=== PATIENT | male | born 1940 | race Caucasian/White ===

== ENCOUNTER 2020-04-21 03:02 | Outpatient (CLI) | payer MEDICARE, OTHER, SELFPAY ==
[2020-04-22 19:28] LABS: SARS-CoV-2 RNA PCR Negative
== END 2020-04-21 03:03 | disposition home or self-care (01) ==
LOC: ANHCOVIDDT 03:04
PROVIDERS: PCP Nurse Practitioner Adult Health; Visit Provider Internal Medicine Gastroenterology
DX: Z01.812 Encounter for preprocedural laboratory examination (principal); Z11.59 Encounter for screening for other viral diseases
CPT/HCPCS: 87635; C9803; U0003

== ENCOUNTER 2020-04-23 01:54 | Day surgery (SDC) | payer MEDICARE, OTHER, SELFPAY ==
[2020-04-14 13:02] VITALS: BMI 24.7
[2020-04-23 11:11] VITALS: BMI 24.7
[2020-04-23 11:15] VITALS: BP 146/79; PULSE 53; RESP 21; TEMP 36.9; O2SAT 98
[2020-04-23] MEDS: LACTATED RINGERS 1,000 ML 150 ML IV CONT (11:22)
[2020-04-23] MEDS: GENTAMICIN 80MG/SOD CHL 50 ML 80 MG/50 ML BAG 100 MG IVPB (11:23)
[2020-04-23] MEDS: AMPICILLIN 2 GM/NS 100 ML 2 GM/100 ML BAG IVPB (11:53)
--- NOTE | 2020-04-23 12:40 | WPDANESEPPF ---
Anes - Initial Pre Proc Eval Procedure: Operation Date: 04/23/20 12:30 Proposed Procedures p Esophagogastroduodenoscopy - Rajeev Jacobson DO Date/Time: 04/23/20 12:40 Surgeon: Rajeev Jacobson DO Pre Op Diagnosis: GERD Patient Data Age: 80 Gender: M Height: 5 ft 7 in Weight: 71.7 kg Allergies Allergy/AdvReac Type Severity Reaction Status Date / Time MSG AdvReac Unknown MIGRAINES Uncoded 04/23/20 11:02 Home Medications Medication Instructions Recorded Confirmed Type famotidine 20 mg PO BID 04/14/20 04/14/20 History omeprazole 20 mg PO DAILY 04/14/20 04/14/20 History simvastatin 20 mg PO DAILY 04/14/20 04/14/20 History All Day Allergy (cetirizine) 04/23/20 History aspirin [Adult Aspirin Regimen] 81 mg PO DAILY 04/23/20 04/23/20 History calcium polycarbophil [FiberCon] 625 mg DAILY 04/23/20 04/23/20 History glucos sul [id number]-Mn 04/23/20 History [Glucosamine Chondroitin] vitamin B comp and C no.3 [B 1 cap PO DAILY 04/23/20 04/23/20 History Complex Plus Vitamin C] Patient hx anesthesia problems: none Family hx anesthesia problems: none PMFSH Past Medical History Medical History (Updated 04/23/20 @ 12:36 by Kennedy Waters MD) GERD (gastroesophageal reflux disease) Hyperlipidemia Migraine Anes - Eval Final PreProcedure Day of Procedure 04/23/20 12:40 Patient weight: normal Heart: regular rate and rhythm Lungs: clear to auscultation Airway: Mallampati scale class II Neurological: alert and oriented Last oral intake: >/= 8 hours ASA classification: III Emergent: no Anesthetic plan: proceed Anesthesia type and monitoring: general GIVS and standard monitoring Informed Consent: The patient's anesthetic plan and its attendant risks and benefits were discussed with the patient/family/POA. Questions were solicited and answers provided to the satisfaction of the patient/family/POA.
--- NOTE | 2020-04-23 13:24 | PM.IMHP ---
H&P: HPI History of Present Illness Chief complaint: GERD Narrative: Reason for visit EGD. This very pleasant gentleman seen at the request of the primary physician. The patient was examined. Impression: The we have a very pleasant gentleman with underlying reflux disease. He is having atypical chest pain. He has responded to increased reflux treatment. He is here for endoscopic evaluation to assess for lying breakthrough symptoms. HTN. HLD. 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 Recommendation: EGD. History: This very pleasant gentleman is being evaluated for atypical chest pressure. The patient underwent cardiac stress testing and was determined to have a negative workup. Patient does have a history of reflux disease. He was seen in the office by my physicians assistant county attorney. The medication was increased and his symptoms have abated. He denies any nausea, vomiting or hematemesis. Denies any constipation, diarrhea, hematochezia, melena or acholic stools. Abdominal pain is denied. Patient is here for EGD. The patient's symptoms with compatible with an atypical chest pressure. Physical examination: General: very pleasant patient in no acute distress. HEENT: Head was normocephalic sclerae is clear mouth without masses neck was supple. Heart: Rate rhythm regular without S3 or S4. Lungs: CTA. Abdomen: Soft with no guarding or rigidity. Bowel sounds were active. Neurologic: Cranial nerves 2 through 12 intact. No focal defects. No clonus. Musculoskeletal system: Revealed no joint tenderness or swelling no muscle atrophy. Extremities: Reveal no significant edema. Skin: Warm and dry with normal turgor. Mental status: intact. Patient is alert and oriented. Review of Systems Review of Systems: All systems reviewed & are unremarkable except as noted in HPI and below [facility] Past Medical History Medical History (Updated 04/23/20 @ 13:23 by Rajeev Jacobson DO) GERD (gastroesophageal reflux disease) HTN (hypertension) Hyperlipidemia Migraine Valvular heart disease s/p TVR Surgical History Surgical History (Updated 04/23/20 @ 13:23 by Rajeev Jacobson DO) H/O colonoscopy Tricuspid valve replaced Meds Home Medications and Allergies Home Medications Medication Instructions Recorded Confirmed Type famotidine 20 mg PO BID 04/14/20 04/14/20 History omeprazole 20 mg PO DAILY 04/14/20 04/14/20 History simvastatin 20 mg PO DAILY 04/14/20 04/14/20 History All Day Allergy (cetirizine) 04/23/20 History aspirin [Adult Aspirin Regimen] 81 mg PO DAILY 04/23/20 04/23/20 History calcium polycarbophil [FiberCon] 625 mg DAILY 04/23/20 04/23/20 History glucos sul [id number]-C-Mn 04/23/20 History [Glucosamine Chondroitin] vitamin B comp and C no.3 [B 1 cap PO DAILY 04/23/20 04/23/20 History Complex Plus Vitamin C] Allergies Allergy/AdvReac Type Severity Reaction Status Date / Time MSG AdvReac Unknown MIGRAINES Uncoded 04/23/20 11:02
[2020-04-23 13:39] VITALS: BP 121/71; PULSE 46; RESP 16; O2SAT 96
[2020-04-23 13:49] VITALS: BP 116/71; PULSE 48; RESP 18; O2SAT 96
[2020-04-23 13:59] VITALS: BP 127/73; PULSE 46; RESP 20; O2SAT 99
== END 2020-04-23 13:41 | disposition home or self-care (01) ==
PROVIDERS: PCP Nurse Practitioner Adult Health; Visit Provider Internal Medicine Gastroenterology
PROC: 0DJ08ZZ Inspection of Upper Intestinal Tract, Via Natural or Artificial Opening Endoscopic (ICD-10-PCS; CPT 43235; principal; 2020-04-23 12:30)
DX: K21.9 Gastro-esophageal reflux disease without esophagitis (principal); R07.89 Other chest pain; E78.5 Hyperlipidemia, unspecified; I10 Essential (primary) hypertension; Z79.82 Long term (current) use of aspirin; Z95.4 Presence of other heart-valve replacement
CPT/HCPCS: 43239; 87081; J0290; J1580; J2704; J7120

== ENCOUNTER 2021-02-25 12:57 | Outpatient (CLI) | payer MEDICARE, SELFPAY ==
--- NOTE | ~2021-02-25 | US_ITS ---
EXAMINATION: US venous doppler LE RT DATE: 02/25/2021 13:33 INDICATION: Right calf pain and erythema. TECHNIQUE: Grayscale ultrasound images without and with compression and Doppler ultrasound images of the right lower extremity veins were obtained. COMPARISON: None. FINDINGS: The visualized portions of right common femoral vein, profunda (deep) femoral vein, femoral vein, pop liteal vein, peroneal trunk, posterior tibial veins, peroneal veins, gastrocnemius vein and greater s aphenous vein outflow are patent. IMPRESSION: 1. No deep venous thrombosis in the right lower limb. Reviewed, dictated and finalized at location A.
== END 2021-02-25 12:58 | disposition home or self-care (01) ==
LOC: ANHIMG 12:59
PROVIDERS: PCP Nurse Practitioner Adult Health; Visit Provider Nurse Practitioner Adult Health
DX: M79.661 Pain in right lower leg (principal)
CPT/HCPCS: 93971

== ENCOUNTER 2025-05-13 08:17 | Emergency (ER) | payer MEDICARE, SELFPAY ==
--- NOTE | ~2025-05-13 | XR_ITS ---
EXAMINATION: XR chest 2V DATE: 05/13/2025 08:54 INDICATION: 3 weeks of cough with crackles in the right lower lung. TECHNIQUE: PA and lateral views of the chest were obtained. COMPARISON: Chest CT dated 09/27/2018 FINDINGS: Peripheral predominant patchy airspace opacities in both lungs. No pleural effusion or pneumothorax. Borderline heart size. Median sternotomy wires and changes of prior tricuspid valve repair. IMPRESSION: 1. Peripheral predominant patchy airspace opacities bilateral lungs with differential including. Atel ectasis, pneumonia, chronic eosinophilic pneumonia or organizing pneumonia. Reviewed, dictated and finalized at location A. IMPRESSION: 1. Peripheral predominant patchy airspace opacities bilateral lungs with differ ential including. Atelectasis, pneumonia, chronic eosinophilic pneumonia or org anizing pneumonia.
--- OUTSIDE RECORDS SUMMARY | 2025-05-13 08:25 | XMS_ITS | Clinical Summary ---
Author Organization [facility]. Address [address] [place] [address] Care Team Providers Care Structurer Name Role Phone Josue Gates Shawn B M.D. Primary Care Provider [phone] Allergies No known active allergies Medications omeprazole (PRILOSEC) 20 MG delayed release capsule Take 20 mg by mouth every morning (before breakfast). Active simvastatin (ZOCOR) 20 MG tablet Take 20 mg by mouth nightly. Active sUMAtriptan (IMITREX) 100 MG tablet Take 100 mg by mouth as needed for Migraine. Active Probiotic Product (PROBIOTIC DAILY PO) Take by mouth daily. Active aspirin EC 81 MG enteric coated tablet Take 81 mg by mouth three times a week. Active cetirizine (ZYRTEC) 10 MG tablet Take 10 mg by mouth daily. Active Zinc 50 MG Tab Take by mouth daily. Active Ascorbic Acid (VITAMIN C PO) Take by mouth daily. Active B Complex Vitamins (B COMPLEX PO) Take by mouth daily. Active HYDROcodone-tameka taminophen (NORCO, LORTAB, VICODIN) 5-325 MG tablet Take 1 or 2 tablets by mouth every 6 hours as needed. 20 tablet 11/09/2022 10:29 AM EST 11/09/2022 Active Active Problems Problem Noted Date Diagnosed Date Malignant melanoma of skin of forearm, right ([facility] 11/09/2022 Social History Tobacco Use Types Packs/Day Years Used Date Smoking Tobacco: Never Smokeless Tobacco: Never Tobacco Cessation:Counseling Given: Not Answered Alcohol Use Standard Drinks/Week Comments Yes 0 (1 standard drink = 0.6 oz pur e alcohol) 3-4 per daily Sex and Gender Information Value Date Recorded Sex Assigned at Not on file Legal Sex Male 9:41 AM EST Gender Identity Not on file Sexual Orientation Not on file Last Filed Vital Signs Vital Sign Reading Time Taken Comments Blood Pressure 135/78 11/09/2022 9:40 AM EST Pulse 57 11/09/2022 9:40 AM EST Temperature 36.2 C (97.2 F) 11/09/2022 9:05 AM EST Respiratory Rate 14 11/09/2022 9:40 AM EST Oxygen Saturation 97% 11/09/2022 9:40 AM EST Inhaled Oxygen Concentration - - Weight 72.2 kg (159 lb 2.8 oz) 11/09/2022 6:13 A M EST Height 170.2 cm (5' 7) 10/28/2022 9:54 AM EST Body Mass Index 24.93 10/28/2022 9:54 AM EST Plan of Treatment Health Maintenance Due Date Last Done Comments MEDICARE WELLNESS EXAM 1958 TETANUS/DIPHTHERIA 09/26/2015 09/26/2005 RSV Immunization - age 60 years and older or (1 - 1-dose 75+ series) 02/21/2016 COVID-19 Vaccine ( season) 2024 09/10/2021, 01/09/2021, 12/12/2020 INFLUENZA (#1) 2025 07/16/2022, 06/27, 07/18/2020, Additional history exists PNEUMOCOCCAL (50y+) Completed 08/06/2016, 6 ZOSTER (SHINGLES) Completed 07/08/2021, , 12/23/2008 HEP B Aged Out No longer eligi ble based on patient's age to complete this topic MEN B Vaccine Aged Out No longer elig ible based on patient's age to complete this topic RSV Immunization < 20 months Aged Out No longer eligible based on patient's age to complete this topic Insurance [employer]ICARE Care Teams Structurer Relationship Specialty Start Date End Date Josue Gates [address] [place] [phone] PCP - Cardiology Internal Medicine Cardiovascular Disease 10/28/22 Chino Alexander M.D. [address] [place] [phone] PCP - General Internal Medicine 10/28/22
--- OUTSIDE RECORDS SUMMARY | 2025-05-13 08:25 | XMS_ITS | Clinical Summary ---
Author Organization [facility] Address [address] [facility] [address] [place] [address] Phone Care Team Providers Care Front Desk Name Role Phone Ashley Banuelos JOSE D Primary Care Provider [phone] Allergies No known active allergies Medications simvastatin (ZOCOR) 20 MG Tablet simvastatin 20 mg tablet 0 Active famotidine (PEPCID) 20 MG Tablet famotidine 20 mg tablet Active B Complex Vitamins (B COMPLEX 1 PO) B Complex 1 PO BID Active Ascorbic Acid (VITAMIN C) 100 MG Tablet Vitamin C 1,000 mg tablet Take 1 tablet every day by oral route. Active zinc sulfate (ZINCATE) 220 (50 Zn) MG Capsule zinc sulfate 220 mg (50 mg) capsule Take 1 capsule every day by oral route. 6 Active polyethylene glycol (GLYCOLAX, MIRALAX) 17 g Pack polyethylene glycol 3350 17 gram/dose oral powder Active Misc Natural Products (GLUCOSAMINE CHOND COMPLEX/MSM PO) Glucos Chond Cplx Advanced 1 PO QD Active aspirin EC 81 MG Tablet Delayed Response Take 81 mg by mouth daily. Active Multiple Vitamins-Minera ls (MENS MULTI VITAMIN & MINERAL PO) Take by mouth. Act luc polycarbophil calcium (FIBERCON) 625 MG Tablet 625 mg. 6 Active Active Problems Problem Noted Date Diagnosed Date Ascending aorta dilatation 06/03/2016 Overview (04/09/2020): Ascending aorta dilatation Benign hypertension 06/03/2016 Overview (04/09/2020): HTN (hypertension), benign Coronary artery disease invo lving [place] coronary artery of [place] heart without angina pectoris 06/03/2016 Overview (04/09/2020): Coronary artery disease involving [place] coronary artery of [place] heart without angina pectoris Disorder of right ventricle of heart 06/03/2016 Overview (04/09/2020): Right ventricular enlargement Dyslipidemia 06/03/2016 Overview (04/09/2020): Dyslipidemia Gastroesophageal reflux disease without esophagi tis 06/03/2016 Overview (04/09/2020): GERD without esophagitis History of tricuspid valve replacement 6 Overview (04/09/2020): History of tricuspid valve replacement with bioprosthetic valve Patent foramen ovale 06/03/2016 Overview (04/09/2020): PFO (patent foramen ovale) Family History Medical History Relation Name Comments Cancer Mother Gull Bladder Relation Name Status Comments Mother Social History Tobacco Use Types Packs/Day Years Used Date Smoking Tobacco: Never Smokeless Tobacco: Never Tobacco Cessation:Counseling Given: No Alcohol Use Standard Drinks/Week Comments Yes 0 (1 standard drink = 0.6 oz pur e alcohol) 4 beers a day Sex and Gender Information Value Date Recorded Sex Assigned at Not on file Legal Sex Male 10:13 PM CDT Gender Identity Not on file Sexual Orientation Not on file Last Filed Vital Signs Vital Sign Reading Time Taken Comments Blood Pressure 134/92 04/09/2020 9:14 AM CDT Pulse 62 04/09/2020 9:14 AM CDT Temperature 36.2 C (97.1 F) 04/09/2020 9:14 AM CDT Respiratory Rate 16 04/09/2020 9:14 AM CDT Oxygen Saturation 99% 04/09/2020 9:14 AM CDT Inhaled Oxygen Concentration - - Weight 72.6 kg (160 lb) 04/09/2020 9:14 AM CDT Height 170.2 cm (5' 7) 04/09/2020 9:14 AM CDT Body Mass Index 25.06 04/09/2020 9:14 AM CDT Plan of Treatment Health Maintenance Due Date Last Done Comments Hepatitis C Virus (HCV) Screening 1940 TdaP Immunization 1940 Pneumococcal Immunization (5 0+ years) (2 of 2 - PCV) 07/15/2007 07/15/2006 Zoster Immunization (2 of 3) 11/21/2011 09/26/2011 Respiratory Syncytial Virus (RSV) Immunization (Adult) (1 - 1-dose 75+ series) 02/21/2016 SARS-COV-2 Immunization (1 - 2023- season) 2024 Influenza Immunization (#1) 2025 06/26/2015 DTaP/Tdap/Td Immunization Discontinued 2005, 09/26/1995 Pneumococcal Immunization Combined Discontinued 07/15/2006 Hepatitis B Immunization Aged Out No longer eligible based on patient's age to complete this topic Human Papillomavirus (HPV) Immunization Aged Out No longer eligible based on patient's age to complete this topic Meningococcal Immunization (ACWY) Aged Out No longer eligible based on patient's age to complete this topic Rotavirus Immunization Aged Out No lo nger eligible based on patient's age to complete this topic Insurance MEDICARE [facility] Care Teams Front Desk Relationship Specialty Start Date End Date Ashley Banuelos APRN PCP - General Advanced Practice Nurse 04/09/20
[2025-05-13 08:26] VITALS: BP 160/68; PULSE 62; RESP 18; TEMP 36.2; O2SAT 99
--- OUTSIDE RECORDS SUMMARY | 2025-05-13 08:26 | XMS_ITS | Clinical Summary ---
Author Organization [facility] [address] Address [address] [place] [address] Care Team Providers Care Grease Maker Head Name Role Phone Ashley Banuelos NP Primary Care Provider [phone] Allergies No known active allergies Medications SUMAtriptan (IMITREX) 100 mg tablet take 1 tablet by oral route once with fluids as early as possible after the onset of a migraine attack;may repeat after 2 hours if headache returns, not to exceed 200mgin 24hrs 0 0 6 Active multivitamin tablet tablet take 1 tablet by oral route every day with food 0 0 6 Active zinc sulfate (ZINCATE) 220 (50) mg capsule take one capsule by mouth once daily 0 0 6 Active ascorbic acid, vitamin C, (VITAMIN C) 1,000 mg CR tablet take one tablet by mouth once daily 0 0 6 Active polycarbophil (FIBERCON) 625 mg tablet take 1 by Oral route once 0 0 6 Active b complex vitamins tablet take 2 by Oral route every day 0 0 6 Active glucosam-chond ro-herb 149-hyal (GLUCOS CHOND CPLX ADVANCED ORAL) Glucos Chond Cplx Advanced QD 3 Active aspirin 81 mg enteric coated tablet Take 81 mg by mouth every other day Active triamcinolone (KENALOG) 0.5 % ointment triamcinolone acetonide 0.5 % topical ointment Active valACYclovir (VALTREX) 500 mg tablet valacyclovir 500 mg tablet Active simvastatin (ZOCOR) 20 mg tablet Take 1 tablet (20 mg total) by mouth nightly 90 tablet 3 0 Active omeprazole (PriLOSEC) 20 mg capsule daily Active Eliquis 5 mg tablet TAKE 1 TABLET BY MOUTH IN THE MORNING AND IN THE EVENING Active cholecalcifero l (VITAMIN D-3) 1,000 unit 4 Active ferrous sulfate 325 mg (65 mg of elemental iron) tablet Take 1 tablet (325 mg total) by mouth daily 4 Active Active Problems Problem Noted Date Diagnosed Date Mixed hyperlipidemia 03/08/2022 Bradycardia 03/17/2021 Sick sinus syndrome 03/17/2021 Pain of foot 10/04/2016 Ankle pain 10/04/2016 Disorder of right ventricle of heart 06/03/2016 Overview (12/31/2016): Right ventricular enlargement Ascending aorta dilatation 06/03/2016 Overview (12/31/2016): Ascending aorta dilatation Patent foramen ovale 06/03/2016 Overview (12/31/2016): PFO (patent foramen ovale) Coronary artery disease invo lving [place] coronary artery of [place] heart without angina pectoris 06/03/2016 Overview (12/31/2016): Coronary artery disease involving [place] coronary artery of [place] heart without angina pectoris Benign hypertension 06/03/2016 Overview (12/31/2016): HTN (hypertension), benign History of tricuspid valve replacement 6 Overview (12/31/2016): History of tricuspid valve replacement with bioprosthetic valve Gastroesophageal reflux disease without esophagi tis 06/03/2016 Overview (12/31/2016): GERD without esophagitis Resolved Problems Problem Noted Date Diagnosed Date Resolved Date Dyslipidemia 06/03/2016 03/08/2022 Overview (12/31/2016): Dyslipidemia Encounters Date Type Department Care Team Description 03/05/2025 1:00 PM CDT Office Visit [facility] [address] [place] [address] Lucas Mart MD History of tricuspid valve replacement (Primary Dx); Sick sinus syndrome (HCC) from Last 3 Months Medical History Medical History Date Comments Hypertension Coronary artery disease H/O tricuspid valve replacement PFO (patent foramen ovale) s/p o versewing Ascending aorta dilatation Family History Medical History Relation Name Comments Other Brother quad bypass; Other Father complications f rom broken hip; Cause of : complications from broken hip Liver cancer Mother Cancer, liver; Cause of : Cancer, liver Relation Name Status Comments Brother Father (Age 78) Mother (Age 71) Social History Tobacco Use Types Packs/Day Years Used Date Smoking Tobacco: Never Smokeless Tobacco: Never Tobacco Cessation:Counseling Given: No Alcohol Use Standard Drinks/Week Comments Yes 0 (1 standard drink = 0.6 oz pur e alcohol) Sex and Gender Information Value Date Recorded Sex Assigned at Not on file Legal Sex Male 3:25 AM VOUCHER EXAMINER Gender Identity Not on file Sexual Orientation Not on file Obstetrics History Last Filed Vital Signs Vital Sign Reading Time Taken Comments Blood Pressure 120/80 03/05/2025 12:55 PM CDT Pulse 83 03/05/2025 12:55 PM CDT Temperature - - Respiratory Rate - - Oxygen Saturation 96% 03/05/2025 12: 55 PM CDT Inhaled Oxygen Concentration - - Weight 74.3 kg (163 lb 12.8 oz) 025 12:55 PM CDT Height 170.2 cm (5' 7) 03/05/2025 12:5 5 PM CDT Body Mass Index 25.65 03/05/2025 12:55 PM CDT Plan of Treatment Health Maintenance Due Date Last Done Comments Depression Screening 1940 Fall Risk Assessment 1940 Hepatitis B Screening 1958 Well Visit 65+ 2006 DTaP/Tdap/Td Vaccine (3 - Td or Tdap) 07/15/2016 07/15/2006, 09/26/2005, 09/26/1995 Covid-19 Vaccine (2023-2 5 season) 2024 09/10/2021, 01/09/2021, 12/12/2020 Influenza Vaccine (#1) 2025 4, 07/30/2019, 06/16/2018, Additional history exists Pneumococcal vaccine 65+ Completed 016, 07/15/2006, 09/26/2005 Zoster Vaccine Completed 07/08/2021, 04/26, 09/26/2011, Additional history exists Procedures Procedure Name Priority Date/Time Associated Diagnosis Comments ELECTROCARDIOGRAM REPORT Routine 025 3:19 PM CDT Sick sinus syndrome (HCC) from Last 3 Months Results * Electrocardiogram Report (03/05/2025 3:19 PM CDT) us Lucas Mart MD ECG ORDERABLES Final Re sult from Last 3 Months Insurance MEDICARE MEDICARE [employer] SUPP[employer]MENT Care Teams Grease Maker Head Relationship Specialty Start Date End Date Ashley Banuelos NP PCP - General Nurse Practitioner 03/06/20
--- OUTSIDE RECORDS SUMMARY | 2025-05-13 08:27 | XMS_ITS | Clinical Summary ---
Author Organization [facility] Healthcare Syste m Address [address] [place] [id number] Care Team Providers Care Stone Carver Name Role Phone Chino Alexander MD Primary Care Provider [phone] Allergies No known active allergies Medications ascorbic acid (Vitamin C) 100 mg tablet Active aspirin 81 mg EC tablet Take 1 tablet (81 mg) by mouth 1 (one) time each day. 9 Active multivitamin tablet 6 Active omeprazole (PriLOSEC) [address] capsule Take 1 capsule (20 mg) by mouth before breakfast. Active SUMAtriptan (Imitrex) 100 mg tablet Take 1 tablet (100 mg) by mouth if needed for migraine. 6 Active VITAMIN B COMPLEX ORAL Take 1 tablet by mouth in the morning and at bedtime. 6 Active zinc sulfate (Zincate) 220 (50 Zn) MG capsule 6 Active cholecalciferol (Vitamin D3) 50 MCG (2000 UT) tablet Take by mouth 1 (one) time each day. Active ferrous sulfate 325 (65 Fe) MG tablet Take 1 tablet (325 mg) by mouth with breakfast. Active saccharomyces boulardii (Florastor) 250 mg capsule Take 1 capsule (250 mg) by mouth in the morning and at bedtime. Active glucosamine-chond roitin 500-400 mg tablet Take 1 tablet by mouth in the morning, at noon, and at bedtime. Active rosuvastatin (Crestor) 20 mg tablet TAKE 1 TABLET BY MOUTH EVERY DAY IN THE MORNING 90 tablet 3 5 Active apixaban (Eliquis) 5 mg tabletIndications :New onset atrial fibrillation (HCC) TAKE 1 TABLET BY MOUTH IN THE MORNING AND AT BEDTIME 90 tablet 5 Active Active Problems Problem Noted Date Diagnosed Date Atypical atrial flutter 10/22/2024 Paroxysmal atrial fibrillation 03/19/2024 Paroxysmal supraventricular tachycardia (HCC) Nonrheumatic tricuspid valve regurgitation 03/19 Primary hypertension 12/23/2023 Assessment & Plan (03/05/2024 11:41 AM EDT): BP today 148/90, will start him on Toprol 25 mg for A-fib control, he will collect ambulatory blood pressure and heart rate log BP goal 120/80 Low sodium diet advised Exercise up to 150 minutes weekly recommended if tolerable. Engage in aerobic physical activity, 3-4 sessions per week, lasting on average 40 minutes per session, and involving moderate to vigorous intensity physical activity Assessment & Plan (12/30/2023 4:39 PM EDT): BP today 148/90, will start him on Toprol 25 mg for A-fib control, he will collect ambulatory blood pressure and heart rate log BP goal 120/80 Low sodium diet advised Exercise up to 150 minutes weekly recommended if tolerable. Engage in aerobic physical activity, 3-4 sessions per week, lasting on average 40 minutes per session, and involving moderate to vigorous intensity physical activity Dyslipidemia 12/23/2023 Assessment & Plan (03/05/2024 11:41 AM EDT): Elevated ASCVD risk LDL goal below 55 Continue with lipid lowering medications, Crestor, continue Mediterranean diet advised; diet should emphasize the intake of vegetables, fruits, whole grains, legumes, healthy protein sources (low-fat dairy products, low-fat poultry, fish/seafood, and nuts), non tropical vegetable oils like olive oil; and should limit sweets, sugar-sweetened beverages, and red meats Exercise up to 150 minutes weekly recommended if tolerable. Engage in aerobic physical activity, 3-4 sessions per week, lasting on average 40 minutes per session, and involving moderate to vigorous intensity physical activity Assessment & Plan (12/30/2023 4:37 PM EDT): Elevated ASCVD risk LDL goal below 55 Continue with lipid lowering medications, Crestor, continue Mediterranean diet advised; diet should emphasize the intake of vegetables, fruits, whole grains, legumes, healthy protein sources (low-fat dairy products, low-fat poultry, fish/seafood, and nuts), non tropical vegetable oils like olive oil; and should limit sweets, sugar-sweetened beverages, and red meats Exercise up to 150 minutes weekly recommended if tolerable. Engage in aerobic physical activity, 3-4 sessions per week, lasting on average 40 minutes per session, and involving moderate to vigorous intensity physical activity Persistent atrial fibrillation 12/23/2023 Assessment & Plan (03/07/2024 9:08 AM EDT): He is status post cardioversion 02/22/[address] Ruiz. Patient continued to be symptomatic, he is feeling palpitations and very reduced exercise capacity, he was able to exercise on a daily basis before now he is really tired and fatigued and cannot our exercise he believes he is back on atrial fibrillation. EKG today shows questionable atrial flutter, 78 beats per minutes with prolonged QT interval QT/QTc 431 464 ms He is on Zyrtec for allergies I am recommending to discontinue due to QT QTc Had a recent echo in July of last year with preserved EF 65 to 70% mild TR, mild AR CHADS2 VASc Score: At least (3 ) On Eliquis 5 mg twice daily for CVA prophylaxis, reports no signs or symptoms of bleeding I am recommending a Holter monitor and EP evaluation for possible A-fib/flutter ablation since patient is symptomatic unable to exercise or complete his daily life activities, I will not start him on any antiarrhythmic medications or AV morenita blockers Patient educated on atrial fibrillation/flutter triggers and how to avoid them, including acute illness/infection, dehydration, excessive alcohol intake, excessive caffeine intake, electrolyte disturbances, thyroid disease, valvular heart disease, and ischemic heart disease. Assessment & Plan (12/30/2023 4:38 PM EDT): EKG shows atrial fibrillation with slow ventricular response, 57 beats per minutes with PVCs Newly diagnosed atrial fibrillation per EKG done today, I am recommending a 7- day ZIO monitor to assess for frequency and rates Had a recent echo in July of last year with preserved EF 65 to 70% mild TR, mild AR CHADS2 VASc Score: At least (3 ) Will start Eliquis 5 mg twice daily for CVA prophylaxis, reports no signs or symptoms of bleeding Per patient his heart rate goes really fast when he exercises or does any exertion, A-fib with PVCs per EKG today I am starting on Toprol for rate control Patient educated on atrial fibrillation/flutter triggers and how to avoid them, including acute illness/infection, dehydration, excessive alcohol intake, excessive caffeine intake, electrolyte disturbances, thyroid disease, valvular heart disease, and ischemic heart disease. Tricuspid valve disease 07/12/2023 Assessment & Plan (03/07/2024 9:03 AM EDT): Tricuspid valve replacement with bioprosthetic valve 2016 Echo done August 23, 2023: 1. Left ventricular ejection fraction, by visual estimation, is 65 to 70%. 2. Global left ventricular systolic function was normal. 3. Impaired relaxation, consistent with grade 1 out of 4 pattern of LV diastolic dysfunction. 4. Tapse=2.07 cmtop normal size. 5. Mildly dilated right atrium. 6. There is no evidence of pericardial effusion. 7. Degenerative mitral valve. 8. Very mild ascending ascending aorta dilatation. 9. Mild tricuspid regurgitation. 10. Tricuspid valve is bioprosthetic. 11. Mild aortic regurgitation. 12. There is no obvious patent foramen ovale or atrial septal defect present. 13. Normalfunctioning bioprosthetic tricuspid valve Patient is asymptomatic no congestive heart failure symptoms Assessment & Plan (12/30/2023 4:37 PM EDT): tricuspid valve replacement with bioprosthetic valve 2016 Echo done August 23, 2023: 1. Left ventricular ejection fraction, by visual estimation, is 65 to 70%. 2. Global left ventricular systolic function was normal. 3. Impaired relaxation, consistent with grade 1 out of 4 pattern of LV diastolic dysfunction. 4. Tapse=2.07 cmtop normal size. 5. Mildly dilated right atrium. 6. There is no evidence of pericardial effusion. 7. Degenerative mitral valve. 8. Very mild ascending ascending aorta dilatation. 9. Mild tricuspid regurgitation. 10. Tricuspid valve is bioprosthetic. 11. Mild aortic regurgitation. 12. There is no obvious patent foramen ovale or atrial septal defect present. 13. Normalfunctioning bioprosthetic tricuspid valve Patient is asymptomatic no congestive heart failure symptoms PFO (patent foramen ovale) 07/12/2023 Resolved Problems Problem Noted Date Diagnosed Date Resolved Date Rapid heart beat 12/30/2023 12/30/2023 Mixed hyperlipidemia 07/12/202312/22/ 024 Encounters Date Type Department Care Team Description 03/15/2025 Refill [facility] Cardiology - [address], [address] [place], [place] [id number] Ju Yepez APRN New onset atrial fibrillation (HCC) 03/13/2025 Refill [facility] [id number] [place] [address], [address] [place], [place] [id number] Estuardo Whitley MD from Last 3 Months Immunizations Immunization Administration Dates Next Due Influenza (Fluzone), High-do se Seasonal, Quadrivalent, Preservative Free 07/18/2023,07/16/2022,07/17/2021,07/18 Influenza, High Dose Seasona l, Preservative Free 07/30/2019,06/16/2018,08/08/2017,08/04 Influenza, Unspecified 09/26/2005 Influenza, seasonal, injecta ble, preservative free 08/06/2016 Measles 09/26/1948 Mumps 09[birth year]26/1948 Pneumococcal Conjugate PCV 13 08/06/2016 Pneumococcal Conjugate PCV 20 01/20/2024 Pneumococcal Polysaccharide PPSV23 09/26/2005 Tdap 09/26/2005 Zoster, Recombinant 07/08/2021,05/08/2021 Zoster, live 12/23/2008 Family History Medical History Relation Name Comments Coronary artery disease Brother Cancer Mother Minerva Sudden Neg Hx Relation Name Status Comments Brother Mother Minerva Social History Tobacco Use Types Packs/Day Years Used Date Smoking Tobacco: Never Passive Smoke Exposure: Never Smokeless Tobacco: Never Alcohol Use Standard Drinks/Week Comments Yes 21 (1 standard drink = 0.6 oz pu re alcohol) [facility] Utilities Answer Date Recorded In the past 12 months has [employer], gas, oil, or water [employer] threatened to shut off services in your home? No 03/21/2024 Humiliation, Afraid, Rape, and Kick questionnair e Answer Date Recorded Within the last year, have y ou been afraid of your partner or ex-partner? No 11/08/2024 Within the last year, have y ou been humiliated or emotionally abused in other ways by your partner or ex-partner? No Within the last year, have y ou been kicked, hit, slapped, or otherwise physically hurt by your partner or ex-partner? No 11/08/2024 Within the last year, have y ou been raped or forced to have any kind of sexual activity by your partner or ex-partner? No 11/08/2024 AUDIT-C Answer Date Recorded Q1: How often do you have a drink containing alcohol? 4 or more times a week 03/21/2024 Q2: How many drinks containi ng alcohol do you have on a typical day when you are drinking? 3 or 4 Q3: How often do you have si x or more drinks on one occasion? Patient declined 03/21/2024 Overall Financial Resource Strain (CARDIA) Answe r Date Recorded How hard is it for you to pa y for the very basics like food, housing, medical care, and heating? Not hard at all 03/21/2024 PHQ-2 Answer Date Recorded Patient Health Questionnaire-2 Score 0 11/08/2024 [facility] - Occupational Stress Questionnaire Answer Date Recorded Do you feel stress - tense, restless, nervous, or anxious, or unable to sleep at night because your mind is troubled all the time - these days? Only a little 11/08/2024 Hunger Vital Sign Answer Date Recorded Within the past 12 months, y ou worried that your food would run out before you got the money to buy more. Never true 03/21/20 24 Within the past 12 months, t he food you bought just didn't last and you didn't have money to get more. Never true 03/21/2024 PRAPARE - Transportation Answer Date Re corded In the past 12 months, has l ack of transportation kept you from medical appointments or from getting medications? No 02/25 In the past 12 months, has l ack of transportation kept you from meetings, work, or from getting things needed for daily living? No 03/21/2024 Housing Stability Vital Sign Answer Mk e Recorded In the last 12 months, was t here a time when you were not able to pay the mortgage or rent on time? No 03/21/2024 Number of Times Moved in the Last Year Not on fi le 03/21/2024 At any time in the past 12 m [facility], were you homeless or living in a usp (including now)? No 03/21/2024 Sex and Gender Information Value Date Recorded Sex Assigned at Male 06/29/2022 3:08 PM EDT Legal Sex Male 9:11 PM EDT Gender Identity Male 06/29/2022 3:08 PM EDT Sexual Orientation Straight 06/29/2022 3: 08 PM EDT Last Filed Vital Signs Vital Sign Reading Time Taken Comments Blood Pressure 132/88 12/31/2024 4:27 PM EDT Pulse 85 12/31/2024 4:27 PM EDT Temperature 36.1 C (97 F) 11/15/2024 1:33 PM EST Respiratory Rate 18 12/31/2024 4:27 PM EDT Oxygen Saturation 96% 12/31/2024 4:27 PM EDT Inhaled Oxygen Concentration - - Weight 70.3 kg (155 lb) 12/31/2024 4:27 PM EDT Height 170.2 cm (5' 7.01) 12/31/2024 4:27 PM ED T Body Mass Index 24.27 12/31/2024 4:27 PM EDT Plan of Treatment Upcoming Encounters Date Type Department Care Team (Late st Contact Info) Description 07/01/2025 1:00 PM EDT Office Visit [facility] [address] [facility] [place] [address] Kurt Minor MD [address], [facility] [address] [place] [address] Health Maintenance Due Date Last Done Comments COVID-19 Vaccine ( season) 2024 09/10/2021, 01/09/2021, 12/12/2020 Medicare Annual Wellness (AWV) 02/18/2025 01/20/2024, 01/17/2023, 01/15/2022, Additional history exists Influenza Vaccine (#1) 2025 , 07/18/2023, 07/16/2022, Additional history exists Zoster Vaccines Completed 07/08/2021, 04/26, 09/26/2011, Additional history exists Pneumococcal Vaccine: 50+ Years Completed 01/20/2024, 08/06/2016, 07/15/2006, Additional history exists HIB Vaccines Aged Out No longer eligi ble based on patient's age to complete this topic HPV Vaccines Aged Out No longer eligi ble based on patient's age to complete this topic Hepatitis A Vaccines Aged Out No long er eligible based on patient's age to complete this topic Hepatitis B Vaccines Aged Out No long er eligible based on patient's age to complete this topic IPV Vaccines Aged Out No longer eligi ble based on patient's age to complete this topic Meningococcal B Vaccine Aged Out No l onger eligible based on patient's age to complete this topic Meningococcal Vaccine Aged Out No gely madalyn eligible based on patient's age to complete this topic Rotavirus Vaccines Aged Out No longer eligible based on patient's age to complete this topic Procedures Procedure Name Priority Date/Time Associated Diagnosis Comments ECG 12-LEAD Routine 05/07/2025 7:15 AM EDT Atypical atrial flutter Paroxysmal atrial fibrillation (HCC) from Last 3 Months Results * ECG 12 lead (05/07/2025 7:15 AM EDT) 12/31/2024 4:40 PM EDT Narrative IMAGING - 05/07/2025 7:15 AM EDT Adult ECG Report Name: Brice Ojeda Age: 85 y.o. Gender: male Narrative Interpretation: Sinus rhythm. Atrial premature complex. Normal ECG. us Kurt Minor MD ECG ORDERABLES Final Result IMAGING from Last 3 Months Insurance MEDICARE [facility] MEDICARE SUPPLEMENT Advance Directives * Full Code (Latest Code Status on File) Date Activated Date Inactivated Comments 11/15/2024 12:59 PM 11/15/2024 9:08 PM Care Teams Stone Carver Relationship Specialty Start Date End Date Chino Alexander MD [address] [facility] [address] [place] [address] PCP - General Family Medicine 07/12/23
--- NOTE | 2025-05-13 08:46 | ED.URI ---
HPI - URI/Sore Throat General Chief Complaint: Upper Respiratory Infection Stated Complaint: Upper Respiratory Infection Time Seen by Provider: 05/13/25 08:39 Source: patient and RN notes reviewed Mode of arrival: ambulatory Limitations: no limitations History of Present Illness HPI Narrative: Patient presents today with a 2-3 week history of cough, nasal congestion, postnasal drip, shortness of breath with exertion. Denies fever. Denies history of asthma or COPD. He called his PCP in [facility] and described his symptoms and was called in a prescription for Paxlovid for possible COVID, which she finished yesterday. This medication did not provide relief of symptoms. States he feels 30% better today than he did 2 days ago. Related Data Home Medications ?Medication ?Instructions ?Recorded ?Confirmed ?Last Taken ?Type famotidine 20 mg tablet 20 mg PO BID 04/14/20 05/13/25 Unknown History omeprazole 20 mg capsule,delayed 20 mg PO DAILY 04/14/20 05/13/25 Unknown History release All Day Allergy (cetirizine) 04/23/20 04/22/20 History aspirin 81 mg tablet,delayed 81 mg PO DAILY 04/23/20 05/13/25 04/22/20 History release (Adult Aspirin Regimen) calcium polycarbophil 625 mg 625 mg DAILY 04/23/20 04/23/20 04/22/20 History tablet (FiberCon) glucosamine sulf dipot 04/23/20 04/22/20 History chlr,msm,chond 550 mg-C 30 mg-remington 1 mg capsule (Glucosamine Chondroitin) vitamin B comp and C no.3 15 mg-10 1 cap PO DAILY 04/23/20 05/13/25 04/22/20 History mg-50 mg-5 mg-300 mg capsule (B Complex Plus Vitamin C) apixaban 5 mg tablet (Eliquis) mg 05/13/25 Unknown History rosuvastatin 20 mg tablet mg 05/13/25 Unknown History Allergies Allergy/AdvReac Type Severity Reaction Status Date / Time bromide salts AdvReac Intermediate Headache Verified 05/13/25 08:24 [facility] Past Medical History Medical History Low bone mass Adenomatous colon polyp HTN (hypertension) Valvular heart disease s/p TVR GERD (gastroesophageal reflux disease) Hyperlipidemia Migraine Surgical History Surgical History H/O colonoscopy Tricuspid valve replaced Comments At time of signature, I have reviewed and agree with nursing past medical, surgical, social and family history unless otherwise noted. Please see nursing chart for further information. There is no relevant family history pertinent to the presenting complaint Exam Narrative: GENERAL: Well-appearing, well-nourished, and in no acute distress. HEAD: Normocephalic, atraumatic. EYES: EOMI. No redness or drainage. Conjunctivae normal. ENT: Mucous membranes pink and moist. Nares mildly congested. No rhinorrhea. TMs normal bilaterally. Throat normal. Uvula absent. NECK: Normal AROM. Supple. No lymphadenopathy. CHEST: No respiratory distress. Crackling in the right lower lobe, otherwise clear. HEART: Regular rate and rhythm. No murmur appreciated. EXTREMITIES: Normal range of motion. No edema. SKIN: Warm, dry, no rash. Capillary refill normal. Normal skin turgor. NEURO: No focal deficits. Alert and oriented x3. Gait steady. PSYCH: Normal affect. No signs of depression or anxiety. Course Course Level of Care: Express Care Visit Vital Signs Vital signs: Vital Signs Temperature 97.2 F L 05/13/25 08:26 Pulse Rate 62 05/13/25 08:26 Respiratory Rate 18 05/13/25 08:26 Blood Pressure 160/68 H 05/13/25 08:26 Pulse Oximetry 99 05/13/25 08:26 Oxygen Delivery Room Air 05/13/25 08:26 Temperature 97.2 F L 05/13/25 08:26 Pulse Rate 62 05/13/25 08:26 Respiratory Rate 18 05/13/25 08:26 Blood Pressure 160/68 H 05/13/25 08:26 Pulse Oximetry 99 05/13/25 08:26 Oxygen Delivery Room Air 05/13/25 08:26 Reviewed MDM - URI/Sore Throat MDM Narrative Medical decision making narrative: 85-year-old male patient presents today with a 2-3 week history of cough, nasal congestion, postnasal drip, shortness of breath with exertion. Denies fever. Denies history of asthma or COPD. [facility] [place] [facility] and pt did not find this helpful, but states symptoms have improved by 30% over the last 2 days. Upon exam, patient has some crackles in the right lower lobe but otherwise clear. Also has some nasal congestion. X-ray shows: Peripheral predominant patchy airspace opacities bilateral lungs with differential including. Atelectasis, pneumonia, chronic eosinophilic pneumonia or organizing pneumonia. Will treat pneumonia and likely sinusitis with some Augmentin. Patient declines albuterol inhaler. Vital signs stable. Patient agrees with plan. Differential Diagnosis Differential diagnosis: Likely upper respiratory infection, sinusitis, viral infection, bronchitis and other (Pneumonia) Imaging Data Radiologist's impression: ITS Impressions Chest X-Ray 05/13/25 09:14 IMPRESSION: 1. Peripheral predominant patchy airspace opacities bilateral lungs with differential including. Atelectasis, pneumonia, chronic eosinophilic pneumonia or organizing pneumonia. Critical Care Time Critical Care Time Critical Care Time: No Discharge Plan Discharge Clinical Impression: Pneumonia Qualifiers: Pneumonia type: due to unspecified organism Laterality: bilateral Lung location: lower lobe of lung Qualified Code(s): J18.9 - Pneumonia, unspecified organism Sinusitis Qualifiers: Sinusitis location: unspecified location Chronicity: acute Recurrence: non-recurrent Qualified Code(s): J01.90 - Acute sinusitis, unspecified Patient Disposition: Home Condition: Stable Instructions: Antibiotic Form, Community Acquired Pneumonia (DC) Additional Instructions: Your x-ray shows some mild pneumonia. Take the Augmentin as prescribed until gone. Take yrlf-tct-cooadun cough medicine as needed. Follow-up with your PCP in 3 days if symptoms are not improving. Your blood pressure was elevated above 120/80 today at Urgent Care. This puts you above the threshold for follow up. Please schedule a followup visit with your personal physician as soon as possible, for further evaluation and treatment. Even blood pressure exceeding 120/80 may indicate pre-hypertension. Patient Language: Peruvian Prescriptions: New amoxicillin-pot clavulanate 875-125 mg tablet 1 tablet PO Q12H 7 Days Qty: 14 0RF No Action rosuvastatin 20 mg tablet Eliquis 5 mg tablet famotidine 20 mg tablet 20 mg PO BID omeprazole 20 mg Capsule,Delayed Release(Dr/Ec) 20 mg PO DAILY calcium polycarbophil [FiberCon] 625 mg Tablet 625 mg DAILY aspirin [Adult Aspirin Regimen] 81 mg Tablet,Delayed Release (Dr/Ec) 81 mg PO DAILY B Complex Plus Vitamin C 67-93-03-5-300 mg Capsule 1 cap PO DAILY Glucosamine Chondroitin 550-30-1 mg Capsule All Day Allergy (cetirizine) Follow-up/Referrals: PHYSICIAN,PLYWOOD MATCHER [Primary Care Provider] - Time of Disposition: 09:30
== END 2025-05-13 09:32 | disposition home or self-care (01) ==
PROVIDERS: Emergency Provider Nurse Practitioner
DX: J18.9 Pneumonia, unspecified organism (principal); J01.90 Acute sinusitis, unspecified; I10 Essential (primary) hypertension; K21.9 Gastro-esophageal reflux disease without esophagitis; E78.5 Hyperlipidemia, unspecified; Z95.2 Presence of prosthetic heart valve; Z79.82 Long term (current) use of aspirin
CPT/HCPCS: 71046; 99213; G0463

== ENCOUNTER 2025-05-20 09:25 | Emergency (ER) | payer MEDICARE, SELFPAY ==
--- NOTE | ~2025-05-20 | XR_ITS ---
XR chest 2V 05/20/2025 09:55 Indication: Productive cough Procedure: 2 view chest Comparison: 05/13/2025 Findings: There are stable mixed interstitial and airspace opacities peripherally in the mid and lower lungs predominantly. No significant change from prior study allowing for differences of technique. Stable cardiomediastinal silhouette. Status post median sternotomy. There is prosthetic heart valve. Impression: 1: Stable peripheral mixed interstitial and airspace disease. Differential diagnosis includes viral pneumonia, atypical pneumonia, cryptogenic organizing pneumonia and chronic interstitial fibrosis such as nonspecific interstitial pneumonia. Reviewed, dictated and finalized at location O. Impression: 1: Stable peripheral mixed interstitial and airspace disease. Differential diag nosis includes viral pneumonia, atypical pneumonia, cryptogenic organizing pneu monia and chronic interstitial fibrosis such as nonspecific interstitial pneumo hosea.
--- NOTE | 2025-05-20 09:28 | ED.URI ---
HPI - URI/Sore Throat General Chief Complaint: Upper Respiratory Infection Stated Complaint: shakiness,coughing Source: patient and RN notes reviewed Mode of arrival: ambulatory Limitations: no limitations History of Present Illness HPI Narrative: Patient is in 85-year-old male who presents to the [facility] with complaints of ongoing productive cough. Patient was seen at this facility on 05/13/2025 and diagnosed with pneumonia. He was treated with Augmentin. Patient states that he completed the course of antibiotics but continues to an ongoing cough. States that the cough is productive with light green sputum. He states that the cough was originally productive with dark green / brown sputum. He denies chest pain or shortness of breath at this time. Denies recent fevers. He states that he was concerned about the ongoing cough since he had finished his antibiotics. He was advised to get a repeat x-ray to ensure resolution of the pneumonia. His respirations are unlabored. Related Data Home Medications ?Medication ?Instructions ?Recorded ?Confirmed ?Last Taken ?Type famotidine 20 mg tablet 20 mg PO BID 04/14/20 05/13/25 Unknown History omeprazole 20 mg capsule,delayed 20 mg PO DAILY 04/14/20 05/13/25 Unknown History release All Day Allergy (cetirizine) 04/23/20 04/22/20 History aspirin 81 mg tablet,delayed 81 mg PO DAILY 04/23/20 05/13/25 04/22/20 History release (Adult Aspirin Regimen) calcium polycarbophil 625 mg 625 mg DAILY 04/23/20 04/23/20 04/22/20 History tablet (FiberCon) glucosamine sulf dipot 04/23/20 04/22/20 History chlr,msm,chond 550 mg-C 30 mg-remington 1 mg capsule (Glucosamine Chondroitin) vitamin B comp and C no.3 15 mg-10 1 cap PO DAILY 04/23/20 05/13/25 04/22/20 History mg-50 mg-5 mg-300 mg capsule (B Complex Plus Vitamin C) apixaban 5 mg tablet (Eliquis) mg 05/13/25 Unknown History rosuvastatin 20 mg tablet mg 05/13/25 Unknown History Allergies Allergy/AdvReac Type Severity Reaction Status Date / Time bromide salts AdvReac Intermediate Headache Verified 05/20/25 09:41 Review of Systems Review of Systems: CONSTITUTIONAL: Denies fever, chills, or sweats. EYES: Denies visual changes, redness, or discharge. ENT: Denies otalgia and sore throat CARDIOVASCULAR: Denies chest pain, palpitations, or edema. RESPIRATORY: Reports cough but denies dyspnea. GASTROINTESTINAL: Denies abdominal pain, nausea, vomiting, or diarrhea. GENITOURINARY: Denies dysuria or hematuria. SKIN: Denies rash or itching. MUSCULOSKELETAL: Denies back pain, joint pain, or myalgia. NEUROLOGIC: Denies headache, numbness, or weakness. Pertinent positives per HPI. [facility] Past Medical History Medical History Low bone mass Adenomatous colon polyp HTN (hypertension) Valvular heart disease s/p TVR GERD (gastroesophageal reflux disease) Hyperlipidemia Migraine Surgical History Surgical History H/O colonoscopy Tricuspid valve replaced Comments At the time of my signature, I reviewed and agree with the nursing past medical, surgical, social, and family history. There is no relevant family history pertinent to the patient complaint. Exam Narrative: GENERAL: This is a well-nourished, well-developed patient, in no apparent distress. HEAD: normocephalic, atraumatic. EYES: Sclera clear/white. Vision is grossly intact. EARS: External ears normal. Hearing grossly intact. NOSE: External nose normal with no obvious nasal discharge, nares without redness, no rhinorrhea. THROAT: Mucous membranes moist, posterior pharynx clear. NECK: Neck supple, non-tender without lymphadenopathy, masses or thyromegaly. CARDIOVASCULAR: Regular rate and rhythm without murmurs, gallops, or rubs. RESPIRATORY: Clear to auscultation. Breath sounds equal bilaterally. No wheezes, rales, or rhonchi. GASTROINTESTINAL: Abdomen soft, non-tender, nondistended. Bowel sounds are active. No hepato-splenomegaly, or palpable masses. No guarding. SKIN: warm, intact with no suspicious lesions or rash, good texture and turgor. NEURO: awake, alert, and oriented to person, place and time. There were no obvious focal neurologic abnormalities. Course Course Level of Care: Express Care Visit Vital Signs Vital signs: Vital Signs Temperature 98.4 F 05/20/25 09:35 Pulse Rate 66 05/20/25 09:35 Respiratory Rate 16 05/20/25 09:35 Blood Pressure 166/74 H 05/20/25 09:35 Pulse Oximetry 97 05/20/25 09:35 Oxygen Delivery Room Air 05/20/25 09:35 Temperature 98.4 F 05/20/25 09:35 Pulse Rate 66 05/20/25 09:35 Respiratory Rate 16 05/20/25 09:35 Blood Pressure 166/74 H 05/20/25 09:35 Pulse Oximetry 97 05/20/25 09:35 Oxygen Delivery Room Air 05/20/25 09:35 Reviewed MDM - URI/Sore Throat MDM Narrative Medical decision making narrative: Take medication as prescribed. Follow-up with primary care physician. Go to ED with worsening symptoms, development of fever, or shortness of breath. Differential Diagnosis Differential diagnosis: Likely upper respiratory infection, bronchitis and other (pneumonia) Imaging Data Attestation: I personally reviewed and interpreted this imaging study as follows: Radiologist's impression: [place] [address] XRay Report Signed Patient: Brice Ojeda : 1940 MR#: [id number] Age: 85 Acct:[id number] Loc: [facility] ADM Date: 05/20/25Attending Dr: Ordering Physician: Daily Aguilera APRN Date of Service: 05/20/25 Procedure(s): XR chest 2V Accession Number(s): [id number] cc: Daily Aguilera APRN; INTERSTATE PLANNER PHYSICIAN~ XR chest 2V 05/20/2025 09:55 Indication: Productive cough Procedure: 2 view chest Comparison: 05/13/2025 Findings: There are stable mixed interstitial and airspace opacities peripherally in the mid and lower lungs predominantly. No significant change from prior study allowing for differences of technique. Stable cardiomediastinal silhouette. Status post median sternotomy. There is prosthetic heart valve. Impression: 1: Stable peripheral mixed interstitial and airspace disease. Differential diagnosis includes viral pneumonia, atypical pneumonia, cryptogenic organizing pneumonia and chronic interstitial fibrosis such as nonspecific interstitial pneumonia. Reviewed, dictated and finalized at location O. Please be advised this is a medical document. It is intended for [id number]-ly-[id number] communication. It is written in medical language and may contain unfamiliar abbreviations or verbiage. Medical documents are intended to carry relevant information, facts as evident, and the clinical opinion of the practitioner at the time of the encounter. This report may have been done utilizing a voice recognition system. Attempts have been made to correct errors. However, there may be uncorrected grammatical, spelling, and recognition errors present. The file time of this note does not necessarily represent the time of service. Dictated By: Rocael Rouse MD 05/20/25 0956 Signed By: <Electronically signed by Rocael Rouse MD in [place]> 05/20/25 0959 Critical Care Time Critical Care Time Critical Care Time: No Discharge Plan Discharge Clinical Impression: Atypical pneumonia Patient Disposition: Home Condition: Stable Instructions: Antibiotic Form Additional Instructions: Take medication as prescribed. Follow-up with primary care physician. Go to ED with worsening symptoms, development of fever, or shortness of breath. Patient Language: Cambodian Prescriptions: New levofloxacin 750 mg tablet 750 mg PO DAILY 7 Days Qty: 7 0RF No Action rosuvastatin 20 mg tablet Eliquis 5 mg tablet amoxicillin-pot clavulanate 875-125 mg tablet 1 tablet PO Q12H 7 Days Qty: 14 0RF famotidine 20 mg tablet 20 mg PO BID omeprazole 20 mg Capsule,Delayed Release(Dr/Ec) 20 mg PO DAILY calcium polycarbophil [FiberCon] 625 mg Tablet 625 mg DAILY aspirin [Adult Aspirin Regimen] 81 mg Tablet,Delayed Release (Dr/Ec) 81 mg PO DAILY B Complex Plus Vitamin C 90-91-48-5-300 mg Capsule 1 cap PO DAILY Glucosamine Chondroitin 550-30-1 mg Capsule All Day Allergy (cetirizine) Follow-up/Referrals: PHYSICIAN,INTERSTATE PLANNER [Primary Care Provider, Internal Medicine] Time of Disposition: 10:09
[2025-05-20 09:35] VITALS: BP 166/74; PULSE 66; RESP 16; TEMP 36.9; O2SAT 97
--- OUTSIDE RECORDS SUMMARY | 2025-05-20 10:00 | XMS_ITS | Clinical Summary ---
Author Organization [facility] Address [address] [facility] [address] [place] [address] Phone Care Team Providers Care Cable Installation Technician Name Role Phone Ashley Banuelos JOSE D Primary Care Provider [phone] Allergies No known active allergies Medications simvastatin [...] (hypertension), benign Coronary artery disease invo lving [place] coronary artery of [place] heart without angina pectoris 06/03/2016 Overview (04/09/2020): Coronary artery disease involving [place] coronary artery of [place] heart without angina pectoris Disorder of right [...] age to complete this topic Insurance MEDICARE [facility] Care Teams Cable Installation Technician Relationship Specialty Start Date End Date Ashley Banuelos APRN PCP - General Advanced Practice Nurse 04/09/20
--- OUTSIDE RECORDS SUMMARY | 2025-05-20 10:00 | XMS_ITS | Clinical Summary ---
Author Organization [facility]. Address [address] [place] [address] Care Team Providers Care Director Of Recruitment Name Role Phone Josue Gates Shawn B M.D. Primary Care Provider [phone] Allergies No known active allergies Medications omeprazole [...] melanoma of skin of forearm, right (CM S/[facility]) 11/09/2022 Social History Tobacco Use Types Packs/Day [...] this topic Insurance [employer] MEDICARE Care Teams Director Of Recruitment Relationship Specialty Start Date End Date Josue Gates [address] [place] [id number] PCP - Cardiology Internal Medicine Cardiovascular Disease 10/28/22 Chino Alexander M.D. [address] [place] [phone] PCP - General Internal Medicine 10/28/22
--- OUTSIDE RECORDS SUMMARY | 2025-05-20 10:00 | XMS_ITS | Clinical Summary ---
Author Organization [facility] m Address [address] [place] [address] Care Team Providers Care Aluminum Pourer Name Role Phone Chino Alexander MD Primary Care Provider [phone] Allergies No known active allergies Medications ascorbic [...] Type Department Care Team Description 03/15/[address] [facility] Cardiology - [address], [address] [place], [place] [id number] Ju Yepez APRN New onset atrial fibrillation (HCC) 03/13/2025 Refill [facility] [id number] [place] [address], [address] [place], [place] [id number] Estuardo Whitley MD from Last 3 Months [...] drink = 0.6 oz pu re alcohol) [facility] Utilities Answer Date Recorded In the past 12 months has [employer], gas, oil, or water [employer] threatened to shut off services in your [...] Recorded Patient Health Questionnaire-2 Score 0 11/08/2024 [facility] - Occupational Stress [...] any time in the past 12 [facility], were you homeless or living in a retirement (including now)? No 03/21/2024 Sex and Gender [...] Description 07/01/2025 1:00 PM EDT Office Visit [facility] [address] [place] [address] Kurt Minor MD [address], [facility] [address] [place] [address] Health Maintenance Due Date Last [...] IMAGING from Last 3 Months Insurance MEDICARE [facility] MEDICARE SUPPLEMENT Advance Directives * Full Code (Latest Code Status on File) Date Activated Date Inactivated Comments 11/15/2024 12:59 PM 11/15/2024 9:08 PM Care Teams Aluminum Pourer Relationship Specialty Start Date End Date Chino Alexander MD [address] [facility] [address] [place] [address] PCP - General Family Medicine 07/12/23
--- OUTSIDE RECORDS SUMMARY | 2025-05-20 10:00 | XMS_ITS | Clinical Summary ---
Author Organization [facility] [address] Address [address] [place] [address] Care Team Providers Care Fitness Floor Attendant Name Role Phone Ashley Banuelos NP Primary Care Provider [phone] Allergies No known active allergies Medications SUMAtriptan [...] foramen ovale) Coronary artery disease invo lving [place] coronary artery of [place] heart without angina pectoris 06/03/2016 Overview (12/31/2016): Coronary artery disease involving [place] coronary artery of [place] heart without angina pectoris Benign hypertension 06/03/2016 [...] Description 03/05/2025 1:00 PM CDT Office Visit [facility] Cardiology [address] [place] [address] Lucas Mart MD History of [...] on file 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
== END 2025-05-20 10:18 | disposition home or self-care (01) ==
PROVIDERS: Emergency Provider Nurse Practitioner; Referring Provider Emergency Medicine
DX: J18.9 Pneumonia, unspecified organism (principal); I10 Essential (primary) hypertension; E78.5 Hyperlipidemia, unspecified; K21.9 Gastro-esophageal reflux disease without esophagitis; Z95.2 Presence of prosthetic heart valve
CPT/HCPCS: 71046; 99213; G0463

== ENCOUNTER 2025-06-19 09:44 | Emergency (ER) | payer MEDICARE, SELFPAY ==
--- NOTE | 2025-06-19 09:50 | ED.URI ---
HPI - URI/Sore Throat General Chief Complaint: Upper Respiratory Infection Stated Complaint: chest congestion/mucas Time Seen by Provider: 06/19/25 09:57 Source: patient and RN notes reviewed Mode of arrival: ambulatory Limitations: no limitations History of Present Illness HPI Narrative: 85-year-old male presents with concern for chronic cough. He was treated for pneumonia twice in April. He reports no real improvement of his cough. Reports he has a productive cough when he wakes up and then it is no longer productive through the day. Reports he feels like he has something in that he needs to cough up constantly. He denies any general malaise, fever, body aches, chills, sweats. Denies upper respiratory infection symptoms. He tried taking Mucinex without relief. He drinks plenty of water throughout the day. He denies any shortness of breath or chest tightness or heaviness. His primary care doctor is in [place] and he has an appointment next month. MD elicited complaint: cough Related Data Home Medications ?Medication ?Instructions ?Recorded ?Confirmed ?Last Taken ?Type famotidine 20 mg tablet 20 mg PO BID 04/14/20 05/13/25 Unknown History omeprazole 20 mg capsule,delayed 20 mg PO DAILY 04/14/20 05/13/25 Unknown History release All Day Allergy (cetirizine) 04/23/20 04/22/20 History aspirin 81 mg tablet,delayed 81 mg PO DAILY 04/23/20 05/13/25 04/22/20 History release (Adult Aspirin Regimen) calcium polycarbophil 625 mg 625 mg DAILY 04/23/20 04/23/20 04/22/20 History tablet (FiberCon) glucosamine sulf dipot 04/23/20 04/22/20 History chlr,msm,chond 550 mg-C 30 mg-remington 1 mg capsule (Glucosamine Chondroitin) vitamin B comp and C no.3 15 mg-10 1 cap PO DAILY 04/23/20 05/13/25 04/22/20 History mg-50 mg-5 mg-300 mg capsule (B Complex Plus Vitamin C) apixaban 5 mg tablet (Eliquis) mg 05/13/25 Unknown History rosuvastatin 20 mg tablet mg 05/13/25 Unknown History Allergies Allergy/AdvReac Type Severity Reaction Status Date / Time bromide salts AdvReac Intermediate Headache Verified 06/19/25 09:46 Review of Systems Review of Systems: CONSTITUTIONAL: Denies malaise, chills, sweats, or fever. EYES: Denies visual changes, redness, or discharge. ENT: Denies rhinorrhea, congestion, sinus pain, otalgia and sore throat. CARDIOVASCULAR: Denies chest pain, palpitations, or edema. RESPIRATORY: Reports chronic, sometimes productive, cough. Denies dyspnea. GASTROINTESTINAL: Denies abdominal pain, nausea, vomiting, diarrhea SKIN: Denies rash or itching. MUSCULOSKELETAL: Denies myalgia. NEUROLOGIC: Denies headache. All systems reviewed & are unremarkable except as noted in HPI and below PMFSH Past Medical History Medical History Low bone mass Adenomatous colon polyp HTN (hypertension) Valvular heart disease s/p TVR GERD (gastroesophageal reflux disease) Hyperlipidemia Migraine Surgical History Surgical History H/O colonoscopy Tricuspid valve replaced Comments At time of signature, agree with nursing past medical, surgical, social and family history. There is no relevant family history pertinent to the presenting complaint Exam Narrative: GENERAL: Well-appearing, well-nourished, and in no acute distress. HEAD: Normocephalic EYES: PERRLA, conjunctivae clear ENT: Nares clear. Mucous membranes moist. NECK: Supple. No lymphadenopathy CHEST: Clear to auscultation, slightly diminished in the bases, otherwise breath sounds equal. No wheezing, rhonchi, rales, or stridor. No respiratory distress, speaks in full sentences. HEART: Regular rate and rhythm. No murmur heard. SKIN: Warm, dry, no rash. NEURO: Alert and oriented x3. PSYCH: Normal mood and affect Course Course Emergency Course: Patient is aware of diagnosis, understands and agrees to treatment plan. Anticipatory guidance given. Patient agrees to follow-up as directed and is aware of reasons to seek care at the emergency department. Portions of this record may have been created with voice recognition software Level of Care: Express Care Visit Vital Signs Vital signs: Reviewed. MDM - URI/Sore Throat MDM Narrative Medical decision making narrative: Differential diagnosis considered: Vázquez virus, strep pharyngitis, allergic rhinitis, upper respiratory tract infection, sinusitis, rhinosinusitis, nasopharyngitis. viral pharyngitis, otitis media, otitis externa, pneumonia, bronchitis, viral cough syndrome, viral syndrome, and influenza. Patient has been treated with 2 antibiotics in the past month with no change in his chest x-ray or cough. Patient is not having malaise, fever, shortness of breath. Will treat with prednisone pending follow-up with primary care provider. Patient reports he has a PET scan coming up since he has had skin cancer. Reports he is followed by a quality control representative in [place] for non changing lung nodules. Exam findings show no acute concerns or changes; patient is non-toxic appearing and is in no distress. Patient is appropriate for outpatient treatment and follow-up. Lab Data Attestation: I reviewed the patient's lab results. Critical Care Time Critical Care Time Critical Care Time: No Discharge Plan Discharge Clinical Impression: Chronic cough Patient Disposition: Home Condition: Stable Instructions: Chronic Cough (ED) Additional Instructions: 1) Please follow-up with your primary care doctor. 2) If you have any worsening of symptoms or any other urgent concerns please go to the ER. 3) Please take medications as prescribed and continue taking your home medications as usual. 4) Please read and follow information included in discharge instructions. Patient Language: Cymraes Prescriptions: New prednisone 20 mg tablet 40 mg PO DAILY 5 Days Qty: 10 0RF No Action rosuvastatin 20 mg tablet Eliquis 5 mg tablet levofloxacin 750 mg tablet 750 mg PO DAILY 7 Days Qty: 7 0RF famotidine 20 mg tablet 20 mg PO BID omeprazole 20 mg Capsule,Delayed Release(Dr/Ec) 20 mg PO DAILY calcium polycarbophil [FiberCon] 625 mg Tablet 625 mg DAILY aspirin [Adult Aspirin Regimen] 81 mg Tablet,Delayed Release (Dr/Ec) 81 mg PO DAILY B Complex Plus Vitamin C 77-97-31-5-300 mg Capsule 1 cap PO DAILY Glucosamine Chondroitin 550-30-1 mg Capsule All Day Allergy (cetirizine) Follow-up/Referrals: PHYSICIAN NOT ON STAFF,NONSTAFF [Primary Care Provider] Time of Disposition: 10:07
[2025-06-19 09:54] VITALS: BP 155/65; PULSE 56; RESP 20; TEMP 36.6; O2SAT 99
--- OUTSIDE RECORDS SUMMARY | 2025-06-19 10:29 | XMS_ITS | Clinical Summary ---
Author Organization [facility] Address [address] [facility] [facility] [address] [place] [address] Phone Care Team Providers Care Steamer Blocker Name Role Phone Ashley Banuelos JOSE D Primary Care Provider [phone] Allergies No known active allergies Medications simvastatin [...] (hypertension), benign Coronary artery disease invo lving [place] coronary artery of [place] heart without angina pectoris 06/03/2016 Overview (04/09/2020): Coronary artery disease involving [place] coronary artery of [place] heart without angina pectoris Disorder of right [...] (Adult) (1 - 1-dose 75+ series) 02/21/2016 Influenza Immunization (#1) 2025 06/26/2015 SARS-COV-2 Immunization ( - season) 2025 DTaP/Tdap/Td Immunization Discontinued 2005, 09/26/1995 Pneumococcal Immunization [...] age to complete this topic Insurance MEDICARE [facility] Care Teams Steamer Blocker Relationship Specialty Start Date End Date Ashley Banuelos APRN PCP - General Advanced Practice Nurse 04/09/20
--- OUTSIDE RECORDS SUMMARY | 2025-06-19 10:29 | XMS_ITS | Clinical Summary ---
Author Organization [facility]. Address [address] [place] [address] Care Team Providers Care Cleaning Matron Name Role Phone Josue Gates Shawn B M.D. Primary Care Provider [phone] Allergies No known active allergies Medications omeprazole [...] melanoma of skin of forearm, right (CM S/[facility]) 11/09/2022 Social History Tobacco Use Types Packs/Day [...] or (1 - 1-dose 75+ series) 02/21/2016 INFLUENZA (#1) 2025 07/16/2022, 06/27, 07/18/2020, Additional history exists COVID-19 Vaccine ( season) 2025 09/10/2021, 01/09/2021, 12/12/2020 PNEUMOCOCCAL (50y+) Completed 08/06/2016, 6 ZOSTER (SHINGLES) [...] this topic Insurance [employer] MEDICARE Care Teams Cleaning Matron Relationship Specialty Start Date End Date Josue Gates [address] [place] [phone] PCP - Cardiology Internal Medicine Cardiovascular Disease 10/28/22 Chino Alexander M.D. [address] [place] [phone] PCP - General Internal Medicine 10/28/22
--- OUTSIDE RECORDS SUMMARY | 2025-06-19 10:29 | XMS_ITS | Clinical Summary ---
Author Organization [facility] [address] Address [address] [place] [address] Care Team Providers Care Profiling Machine Set Up Operator Name Role Phone Ashley Banuelos NP Primary Care Provider [phone] Allergies No known active allergies Medications SUMAtriptan [...] foramen ovale) Coronary artery disease invo lving [place] coronary artery of [place] heart without angina pectoris 06/03/2016 Overview (12/31/2016): Coronary artery disease involving [place] coronary artery of [place] heart without angina pectoris Benign hypertension 06/03/2016 Overview (12/31/2016): HTN (hypertension), benign History of tricuspid valve replacement 6 Overview (12/31/2016): History of tricuspid valve replacement with bioprosthetic valve Gastroesophageal reflux disease without esophagi tis 06/03/2016 Overview (12/31/2016): GERD without esophagitis Resolved Problems Problem Noted Date Diagnosed Date Resolved Date Dyslipidemia 06/03/2016 03/08/2022 Overview (12/31/2016): Dyslipidemia Medical History Medical History Date Comments Hypertension [...] on file 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 Gender Identity Not on file Sexual Orientation [...] Tdap) 07/15/2016 07/15/2006, 09/26/2005, 09/26/1995 Covid-19 Vaccine (2024-2 6 season) 2025 09/10/2021, 01/09/2021, 12/12/2020 Influenza Vaccine (#1) 2025 , 07/30/2019, 06/16/2018, Additional history exists Pneumococcal vaccine 65+ Completed 016, 07/15/2006, 09/26/2005 Zoster Vaccine Completed 07/08/2021, 04/26, 09/26/2011, Additional history exists Insurance MEDICARE MEDICARE [employer] MEDICARE SUPPLEMENT Care Teams Profiling Machine Set Up Operator Relationship Specialty Start Date End Date Ashley Banuelos NP PCP - General Nurse Practitioner 03/06/20
--- OUTSIDE RECORDS SUMMARY | 2025-06-19 10:30 | XMS_ITS | Clinical Summary ---
Author Organization [facility] m Address [address] [place] [address] Care Team Providers Care Retail Selling Floor Leader Name Role Phone Chino Alexander MD Primary Care Provider [phone] Allergies No known active allergies Medications ascorbic [...] Rapid heart beat 12/30/2023 12/30/2023 Mixed hyperlipidemia 07/12/2023 024 Immunizations Immunization Administration Dates Next Due Influenza [...] drink = 0.6 oz pu re alcohol) [facility] Utilities Answer Date Recorded In the past 12 months has [facility] [employer], oil, or water [employer] threatened to shut off services in your [...] Recorded Patient Health Questionnaire-2 Score 0 11/08/2024 [facility] of Occupat ional Health - Occupational Stress [...] any time in the past 12 m [facility], were you homeless or living in a snf (including now)? No 03/21/2024 Sex and Gender [...] Description 07/01/2025 1:00 PM EDT Office Visit [facility] [address] [facility] [place] [address] Kurt Minor MD [address] [place] [address] Health Maintenance Due Date Last Done Comments Medicare Annual Wellness (AWV) 02/18/2025 01/20/2024, 01/17/2023, 01/15/2022, Additional history exists COVID-19 Vaccine ( season) 2025 09/10/2021, 01/09/2021, 12/12/2020 Influenza Vaccine (#1) 2025 , 07/18/2023, 07/16/2022, [...] Sinus rhythm. Atrial premature complex. Normal ECG. Kurt Minor MD ECG ORDERABLES Final Result IMAGING from Last 3 Months Insurance MEDICARE [employer] MEDICARE SUPPLEMENT Advance Directives * Full Code (Latest Code Status on File) Date Activated Date Inactivated Comments 11/15/2024 12:59 PM 11/15/2024 9:08 PM Care Teams Retail Selling Floor Leader Relationship Specialty Start Date End Date Chino Alexander MD [address] [facility] [address] [facility] [address] [place] [address] PCP - General Family Medicine 07/12/23
--- OUTSIDE RECORDS SUMMARY | 2025-06-19 10:30 | XMS_ITS | Clinical Summary ---
Author Organization [facility] Address [address] [place] [address] Care Team Providers Care Customer Experience Analyst Name Role Phone Unavailable Primary Care Provider Unavailabl e Social History Tobacco Use Types Packs/Day Years Used Date Smoking Tobacco: Never Assessed Sex and Gender Information Value Date Recorded Sex Assigned at Not on file Legal Sex Male 7:05 PM CDT Gender Identity Not on file Sexual Orientation Not on file Plan of Treatment Health Maintenance Due Date Last Done Comments DTaP, Tdap and Td Vaccines ( 1 - Tdap) 02/21/1960 Pneumococcal Vaccine: 50+ Ye ars (1 of 1 - PCV) 1991 Zoster Vaccines (1 of 2) 1991 RSV Immunization or 60+ Years (1 - 1-dose 75+ series) 02/21/2016 COVID-19 Vaccine ( - 2023-2 5 season) 2025 Meningococcal B Vaccine Aged Out No l onger eligible based on patient's age to complete this topic Meningococcal Vaccine Aged Out No gely madalyn eligible based on patient's age to complete this topic RSV Immunizations Under 20 Months Aged Out No longer eligible based on patient's age to complete this topic
== END 2025-06-19 10:08 | disposition home or self-care (01) ==
PROVIDERS: Emergency Provider Nurse Practitioner
DX: R05.3 Chronic cough (principal); I10 Essential (primary) hypertension; E78.5 Hyperlipidemia, unspecified; K21.9 Gastro-esophageal reflux disease without esophagitis; Z95.2 Presence of prosthetic heart valve; Z79.82 Long term (current) use of aspirin; Z79.01 Long term (current) use of anticoagulants
CPT/HCPCS: 99213; G0463